=== PATIENT | female | born 1950 | race American Indian/Alaskan Native ===

== ENCOUNTER 2019-03-16 15:16 | Emergency (ER) | payer MEDICARE ==
--- NOTE | 2019-03-16 18:16 | XRay Report ---
LEFT HIP 2 VIEWS. INDICATION / CLINICAL INFORMATION: left hip pain after fall COMPARISON: None available. FINDINGS: BONES / JOINT(S): No acute fracture or subluxation. Previous placement of bilateral hip prostheses. N o significant arthritis. SOFT TISSUES: No significant abnormality. ADDITIONAL FINDINGS: None. Signer Name: Jose Johnston MD Signed: 03/16/2019 6:12 PM Workstation Name: [id number]
--- NOTE | 2019-03-16 18:17 | XRay Report ---
LUMBAR SPINE 2 VIEWS. INDICATION / CLINICAL INFORMATION: back pain after fall COMPARISON: None available. FINDINGS: BONES / JOINT(S): Moderate levoconvex scoliosis with apex at L2-L3. No acute appearing vertebral comp ression. Degenerative disc disease is greatest at L2-3 on the right where changes are moderately adva nced. SOFT TISSUES: Suspect nonobstructing left renal stones. ADDITIONAL FINDINGS: None. Signer Name: Jose Johnston MD Signed: 03/16/2019 6:13 PM Workstation Name: [id number]
--- NOTE | 2019-03-16 19:02 | Emergency Department Report ---
ED Fall HPI - General Chief Complaint: Fall Stated Complaint: FALL Time Seen by Provider: 03/16/19 17:01 Source: EMS Mode of arrival: Stretcher Limitations: No Limitations - History of Present Illness Initial Comments: 68-year-old female the past medical history of retinal detachment 3 weeks ago as well as bilateral hip replacement presents to the hospital status post ground- level fall. Patient was at her follow-up eye doctor appointment today and did receive dilation of her left eye. He states that the pavement outside the office is uneven and she fell landing backwards. He struck her head on a potted plant. No LOC reported. She complains of some mild pain to the back and head, left hip, and lower back. Patient states she also has a history of scoliosis. She currently denies any blurred vision, focal weakness, or numbness. - Related Data Allergies Allergy/AdvReac Type Severity Reaction Status Date / Time No Known Allergies Allergy Unverified 03/16/19 19:03 ED Review of Systems ROS: Stated complaint: FALL Other details as noted in HPI Comment: All other systems reviewed and negative ED Past Medical Hx - Past Medical History Previous Medical History?: Yes Additional medical history: detach retina - Surgical History Past Surgical History?: Yes Additional Surgical History: bilt hip replacement - Social History Smoking Status: Never Smoker Substance Use Type: None ED Physical Exam - General Limitations: No Limitations - Other Other exam information: General: No acute distress Head: post scalp tenderness Eyes: normal appearance ENT: Moist mucous membranes Neck: Normal appearance, no midline tenderness Chest: Clear to auscultation bilaterally CV: Regular rate and rhythm Abdomen: Soft, normal bowel sounds, nontender, nondistended, no rebound or guarding Back: Normal inspection, no midline tenderness, mild left sided paraspinal muscle tenderness Extremity: Normal inspection infection, full range of motion with minimal pain. Neuro: Alert O x 3, no facial asymmetry, speech clear, no gross motor sensory deficit Psych: Appropriate behavior Skin: No rash ED Course Vital Signs 03/16/19 03/16/19 03/16/19 16:15 16:45 17:00 Temperature 98.0 F Pulse Rate 77 73 Respiratory 16 16 Rate Blood Pressure 142/84 117/74 120/72 O2 Sat by Pulse 98 96 Oximetry 03/16/19 03/16/19 17:11 18:01 Temperature Pulse Rate 67 Respiratory 16 12 Rate Blood Pressure 120/72 O2 Sat by Pulse 96 Oximetry ED Medical Decision Making - Radiology Data Radiology results: report reviewed LEFT HIP 2 VIEWS. INDICATION / CLINICAL INFORMATION: left hip pain after fall COMPARISON: None available. FINDINGS: BONES / JOINT(S): No acute fracture or subluxation. Previous placement of bilateral hip prostheses. No significant arthritis. SOFT TISSUES: No significant abnormality. ADDITIONAL FINDINGS: None. LUMBAR SPINE 2 VIEWS. INDICATION / CLINICAL INFORMATION: back pain after fall COMPARISON: None available. FINDINGS: BONES / JOINT(S): Moderate levoconvex scoliosis with apex at L2-L3. No acute appearing vertebral compression. Degenerative disc disease is greatest at L2-3 on the right where changes are moderately advanced. SOFT TISSUES: Suspect nonobstructing left renal stones. ADDITIONAL FINDINGS: None. NONENHANCED CT SCAN OF THE HEAD: INDICATION / CLINICAL INFORMATION: 68 years Female; fall, head injury, TECHNIQUE: Routine CT head without contrast. All CT scans at this location are performed using CT dose reduction for ALARA by means of automated exposure control. COMPARISON: None. FINDINGS: BRAIN / INTRACRANIAL CONTENTS: I do not see intracranial sequela from the trauma. No scalp hematoma; no air-fluid level in the visualized portions of the paranasal sinuses. No acute hemorrhage, mass effect, midline shift, hydrocephalus, or acute, large territorial infarct. No chronic infarct or focal atrophy. Normal brain volume and ventricular/sulcal size for age. No significant white matter abnormality. CRANIOCERVICAL JUNCTION: No significant abnormality. ORBITS: Banding procedure is seen bilaterally. I do not see any acute findings in the orbits. SINUSES / MASTOIDS: No significant abnormality of the visualized paranasal sinuses or mastoid air cells. ADDITIONAL FINDINGS: None. IMPRESSION: I do not see intracranial sequela from the trauma. CT CERVICAL SPINE WITHOUT CONTRAST INDICATION: fall, head injury,. TECHNIQUE: Axial CT images of the spine were obtained. Sagittal and coronal reformatted images were produced. All CT scans at this location are performed using CT dose reduction for ALARA by means of automated exposure control. COMPARISON: None available. FINDINGS: ACUTE FRACTURE(S) OR SUBLUXATION: None. SPINAL DEGENERATIVE CHANGES: There is moderate degenerative disc disease at C4-5, C5-6, and C6-7 with disc height loss and endplate osteophyte formation resulting in mild spinal canal stenosis at those levels. There is also mild bilateral neural foraminal narrowing is levels due to uncovertebral joint DJD. PARASPINAL SOFT TISSUES: No soft tissue swelling or other acute abnormalities. ADDITIONAL FINDINGS: No significant additional findings. IMPRESSION: 1. No acute fracture or subluxation in the spine in neutral position. 2. Moderate degenerative findings in the lower cervical spine as described above. - Medical Decision Making no acute injury on imaging studies tylenol given in ed for pain d/c with pmd f/u - Differential Diagnosis fxt, contusion, sprain Critical Care Time: No Critical care attestation.: If time is entered above; I have spent that time in minutes in the direct care of this critically ill patient, excluding procedure time. ED Disposition Clinical Impression: Fall, Mild closed head injury, Strain of left hip Disposition: TO HOME OR SELFCARE Is pt being admited?: No Does the pt Need Aspirin: No Condition: Stable Instructions: Fall Prevention for Older Adults (ED), Hip Sprain (ED), Minor Head Injury (ED) Additional Instructions: Take Motrin or Tylenol as needed for pain. Follow-up with your doctor or doctor/clinic provided. Return if symptoms worsen as indicated by your discharge instructions. Referrals: your, doctor [Other] - 3-5 Days Time of Disposition: 19:22
--- NOTE | 2019-03-16 19:05 | Cat Scan Report ---
CT CERVICAL SPINE WITHOUT CONTRAST INDICATION: fall, head injury,. TECHNIQUE: Axial CT images of the spine were obtained. Sagittal and coronal reformatted images were produced. Al l CT scans at this location are performed using CT dose reduction for ALARA by means of automated exp osure control. COMPARISON: None available. FINDINGS: ACUTE FRACTURE(S) OR SUBLUXATION: None. SPINAL DEGENERATIVE CHANGES: There is moderate degenerative disc disease at C4-5, C5-6, and C6-7 with disc height loss and endplate osteophyte formation resulting in mild spinal canal stenosis at those levels. There is also mild bilateral neural foraminal narrowing is levels due to uncovertebral joint DJD. PARASPINAL SOFT TISSUES: No soft tissue swelling or other acute abnormalities. ADDITIONAL FINDINGS: No significant additional findings. IMPRESSION: 1. No acute fracture or subluxation in the spine in neutral position. 2. Moderate degenerative findings in the lower cervical spine as described above. Signer Name: Edouard Bryan MD Signed: 03/16/2019 7:00 PM Workstation Name: [id number]
--- NOTE | 2019-03-16 19:05 | Cat Scan Report ---
NONENHANCED CT SCAN OF THE HEAD: INDICATION / CLINICAL INFORMATION: 68 years Female; fall, head injury, TECHNIQUE: Routine CT head without contrast. All CT scans at this location are performed using CT dos e reduction for ALARA by means of automated exposure control. COMPARISON: None. FINDINGS: BRAIN / INTRACRANIAL CONTENTS: I do not see intracranial sequela from the trauma. No scalp hematoma; no air-fluid level in the visualized portions of the paranasal sinuses. No acute hemorrhage, mass effect, midline shift, hydrocephalus, or acute, large territorial infarct. No chronic infarct or focal atrophy. Normal brain volume and ventricular/sulcal size for age. No sign ificant white matter abnormality. CRANIOCERVICAL JUNCTION: No significant abnormality. ORBITS: Banding procedure is seen bilaterally. I do not see any acute findings in the orbits. SINUSES / MASTOIDS: No significant abnormality of the visualized paranasal sinuses or mastoid air lacy ls. ADDITIONAL FINDINGS: None. IMPRESSION: I do not see intracranial sequela from the trauma. Signer Name: Kd Zuluaga MD Signed: 03/16/2019 7:01 PM Workstation Name: [id number]
[2019-03-16] MEDS ORDERED: ACETAMINOPHEN 325 MG TAB PO ONE (19:20)
[2019-03-16 20:07] VITALS: BP 120/71
== END 2019-03-16 19:40 | disposition home or self-care (01) ==
LOC: ED 15:16
DX: S76.012A Strain of muscle, fascia and tendon of left hip, initial encounter (principal); S09.90XA Unspecified injury of head, initial encounter; M54.5 Low back pain; Z98.890 Other specified postprocedural states; W19.XXXA Unspecified fall, initial encounter; Y93.89 Activity, other specified; Y92.89 Other specified places as the place of occurrence of the external cause; Y99.8 Other external cause status
CPT/HCPCS: 70450; 72100; 72125